=== PATIENT | female | born 1995 | race African-American/Black ===

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

== ENCOUNTER 2018-06-07 20:11 | Emergency (ER) | payer BC ==
[~2018-06-07] VITALS: Ht 165.1 cm; Wt 77.1 kg
[~2018-06-07 20:11] MED LIST: CYCL10TA2 PO
[2018-06-07 21:10] VITALS: BP 137/70
[2018-06-07] MEDS ORDERED: NAPROXEN 500 MG TABLET PO ONE (22:30)
--- NOTE | 2018-06-07 22:52 | RAD ---
Examination: 2 views of the right hip and right femur HISTORY: History of fall, right leg pain COMPARISON: None available FINDINGS: The bilateral femoral heads within the acetabula. There is no acute fracture or dislocation identified. IMPRESSION: No acute osseous findings. Electronically signed by: Sandor Yeager MD (06/07/2018 10:48 PM) [id number]
--- NOTE | 2018-06-07 22:52 | RAD ---
Examination: 2 views of the right hip and right femur HISTORY: History of fall, right leg pain COMPARISON: None available FINDINGS: The bilateral femoral heads within the acetabula. There is no acute fracture or dislocation identified. IMPRESSION: No acute osseous findings. Electronically signed by: Sandor Yeager MD (06/07/2018 10:48 PM) [id number]
--- NOTE | 2018-06-07 23:06 | PHYS DOC ---
Past Medical History Past Medical History: No Pertinent History Past Surgical History: No Surgical History Additional Past Surgical Histo: I&D abscess chest Alcohol Use: None Drug Use: None Adult General Chief Complaint Chief Complaint: MECHANICAL FALL HPI HPI Patient is a 23 year old [f__sex] who presents with [] Review of Systems Review of Systems Constitutional: Denies fever or chills [] Eyes: Denies change in visual acuity, redness, or eye pain [] HENT: Denies nasal congestion or sore throat [] Respiratory: Denies cough or shortness of breath [] Cardiovascular: No additional information not addressed in HPI [] GI: Denies abdominal pain, nausea, vomiting, bloody stools or diarrhea [] : Denies dysuria or hematuria [] Musculoskeletal: Denies back pain or joint pain [] Integument: Denies rash or skin lesions [] Neurologic: Denies headache, focal weakness or sensory changes [] Endocrine: Denies polyuria or polydipsia [] All other systems were reviewed and found to be within normal limits, except as documented in this note. Current Medications Current Medications Current Medications Medications (Trade) Dose Ordered Sig/Remy Start Time Stop Time Status Last Admin Dose Admin Naproxen (Naprosyn) 500 mg 1X ONCE 06/07/18 22:30 06/07/18 22:31 DC 06/07/18 22:13 500 MG Allergies Allergies Allergies Coded Allergies Type Severity Reaction Last Updated Verified No Known Drug Allergies 09/14/15 No Physical Exam Physical Exam Constitutional: Well developed, well nourished, no acute distress, non-toxic appearance. [] HENT: Normocephalic, atraumatic, bilateral external ears normal, oropharynx moist, no oral exudates, nose normal. [] Eyes: PERRLA, EOMI, conjunctiva normal, no discharge. [] Neck: Normal range of motion, no tenderness, supple, no stridor. [] Cardiovascular:Heart rate regular rhythm, no murmur [] Lungs & Thorax: Bilateral breath sounds clear to auscultation [] Abdomen: Bowel sounds normal, soft, no tenderness, no masses, no pulsatile masses. [] Skin: Warm, dry, no erythema, no rash. [] Back: No tenderness, no CVA tenderness. [] Extremities: No tenderness, no cyanosis, no clubbing, ROM intact, no edema. [] Neurologic: Alert and oriented X 3, normal motor function, normal sensory function, no focal deficits noted. [] Psychologic: Affect normal, judgement normal, mood normal. [] Current Patient Data Vital Signs Vital Signs Date Time Temp Pulse Resp B/P (MAP) Pulse Ox O2 Delivery O2 Flow Rate FiO2 06/07/18 21:10 98.5 75 16 137/70 (92) 98 Room Air 98.5 EKG EKG [] Radiology/Procedures Radiology/Procedures PROCEDURE: RIGHT FEMUR XRAY Examination: 2 views of the right hip and right femur HISTORY: History of fall, right leg pain COMPARISON: None available FINDINGS: The bilateral femoral heads within the acetabula. There is no acute fracture or dislocation identified. IMPRESSION: No acute osseous findings. PROCEDURE: HIP RIGHT 2V WITH PELVIS Examination: 2 views of the right hip and right femur HISTORY: History of fall, right leg pain COMPARISON: None available FINDINGS: The bilateral femoral heads within the acetabula. There is no acute fracture or dislocation identified. IMPRESSION: No acute osseous findings. [] Course & Med Decision Making Course & Med Decision Making Pertinent Labs and Imaging studies reviewed. (See chart for details) [] Dragon Disclaimer Dragon Disclaimer This electronic medical record was generated, in whole or in part, using a voice recognition dictation system. Departure Departure Impression: Primary Impression: Contusion of hip and thigh Disposition: HOME, SELF-CARE Condition: STABLE Referrals: UNKNOWN PCP NAME (PCP) Patient Instructions: Contusion, [id number] Additional Instructions: Take tylenol or ibuprofen as needed for pain. Apply ice to sore areas as needed for pain, activity as tolerated. Follow up with your primary care doctor if symptoms persist, return to ER if symptoms worsen. Problem Qualifiers Primary Impression: Contusion of hip and thigh Encounter type: initial encounter Laterality: right Qualified Codes: S70.01XA - Contusion of right hip, initial encounter; S70.11XA - Contusion of right thigh, initial encounter MANUEL MCCRACKEN [employer] Jun 07, 2018 23:05
== END 2018-06-07 23:11 | disposition home or self-care (01) ==
LOC: ER 20:11
DX: S70.11XA Contusion of right thigh, initial encounter (principal); S70.01XA Contusion of right hip, initial encounter; W18.39XA Other fall on same level, initial encounter; Y93.89 Activity, other specified; Y92.89 Other specified places as the place of occurrence of the external cause; Y99.8 Other external cause status
CPT/HCPCS: 73502; 73552; 99283